=== PATIENT | male | born 1975 | race Caucasian/White ===

== ENCOUNTER 2017-10-03 13:46 | Emergency (ER) | payer MEDICARE, MEDICAID ==
[~2017-10-03] VITALS: Ht 170.2 cm; Wt 85.4 kg
[~2017-10-03 13:46] MED LIST: COMPLETE SENIOR1 TA1 PO; KLOR-CON M2020 MEQ PO; LAMICTAL150 MG PO; NORCO 325 MG-7.1 TAB PO; ONFI 10MG PO; PRILOSEC 20MG20 MG PO; TOPAMAX 100MG100 M1 PO
[2017-10-03 13:55] VITALS: TEMP 99.1
[2017-10-03] MEDS ORDERED: ONFI 10MG PO (15:23)
[2017-10-03] MEDS ORDERED: BANZEL200 MG (15:23)
[2017-10-03 15:31] VITALS: BP 138/97; PULSE 102
== END 2017-10-03 15:31 | disposition home or self-care (01) ==
LOC: COL.ER 13:46
DX: S01.01XA Laceration without foreign body of scalp, initial encounter (principal); R56.9 Unspecified convulsions; W18.39XA Other fall on same level, initial encounter

== ENCOUNTER 2017-10-17 18:03 | Emergency (ER) | payer MEDICARE, MEDICAID ==
[~2017-10-17] VITALS: Ht 170.2 cm; Wt 68.2 kg
[~2017-10-17 18:03] MED LIST changes: +BANZEL200 MG
[2017-10-17 18:06] VITALS: BP 164/92; TEMP 97.3
[2017-10-17 19:05] VITALS: PULSE 85
== END 2017-10-17 19:05 | disposition home or self-care (01) ==
LOC: COL.ER 18:03
DX: S01.01XA Laceration without foreign body of scalp, initial encounter (principal); S06.330A Contusion and laceration of cerebrum, unspecified, without loss of consciousness, initial encounter; G40.909 Epilepsy, unspecified, not intractable, without status epilepticus; W01.198A Fall on same level from slipping, tripping and stumbling with subsequent striking against other object, initial encounter

== ENCOUNTER → 2020-02-10 | Outpatient (CLI) | payer MEDICARE, MEDICAID | LOC: COL.RAD 12:47 | DX: S42.252A Displaced fracture of greater tuberosity of left humerus, initial encounter for closed fracture (principal); M19.012 Primary osteoarthritis, left shoulder | CPT/HCPCS: Q9967 ==